=== PATIENT | female | born 1995 | race Caucasian/White ===

== ENCOUNTER 2021-04-30 12:21 | Emergency (ER) | payer MEDICAID ==
[~2021-04-30] VITALS: Ht 165.1 cm; Wt 113.4 kg
[2021-04-30 12:21] VITALS: BP 126/82
[2021-04-30] MEDS ORDERED: HYDROcodone-ACET 10/325MG TAB PO ONE (14:30)
== END 2021-04-30 22:07 | disposition home or self-care (01) ==
LOC: ER 12:21
DX: S33.5XXA Sprain of ligaments of lumbar spine, initial encounter (principal); R10.9 Unspecified abdominal pain; N18.2 Chronic kidney disease, stage 2 (mild); X58.XXXA Exposure to other specified factors, initial encounter; Y93.89 Activity, other specified; Y92.89 Other specified places as the place of occurrence of the external cause; Y99.8 Other external cause status
CPT/HCPCS: 72131; 74176

== ENCOUNTER 2021-12-09 14:08 | Emergency (ER) | payer MEDICAID ==
[~2021-12-09] VITALS: Ht 165.1 cm; Wt 118.1 kg
[2021-12-09 17:54] LABS: Urine Bacteria NONE SEEN /hpf (None Seen); Urine Blood Negative /uL (Negative); Urine Mucus FEW (None Seen); Urine Specific Gravity 1.021 (1.001-1.035); Urine WBC <1 /hpf (0 - 5)
[2021-12-09] MEDS ORDERED: ONDANSETRON HCL 4 MG/2 ML VIAL IV ONE (18:30)
[2021-12-09] MEDS ORDERED: MORPHINE SULFATE 4 MG/ML SYR/VIAL IV ONE (18:30)
[2021-12-09] MEDS ORDERED: LACTATED RINGER'S 1,000 ML IV ONE (18:30)
[2021-12-09 18:35] LABS: Basophils # (auto) 0.1 10 ^3/uL (0-0.2); Basophils % (auto) 0.6 % (0.0-2.0); Eosinophils # (auto) 0.1 10 ^3/uL (0-0.8); Eosinophils % (auto) 0.8 % (0.0-7.0); Hematocrit 44.2 % (36.0-46.0); Hemoglobin 14.9 g/dL (12.2-16.2); Lymphocytes # (auto) 2.8 10 ^3/uL (0.4-5.4); Lymphocytes % (auto) 28.3 % (10.0-50.0); Mean Corpuscular Hemoglobin 30.4 pg (28.0-32.0); Mean Corpuscular Hgb Conc. 33.6 g/dL (32.0-36.0); Mean Corpuscular Volume 90.6 fL (80.0-100.0); Monocytes # (auto) 0.6 10 ^3/uL (0-1.3); Monocytes % (auto) 5.8 % (0.0-12.0); Neutrophils # (auto) 6.5 10 ^3/uL (1.6-8.6); Neutrophils % (auto) 64.5 % (37.0-80.0); Nucleated Red Blood Cells % 0.1 %; Red Blood Cells 4.88 10^6/uL (4.0-5.20); Red Cell Distribution Width 13.5 % (11.8-14.3)
[2021-12-09 18:48] LABS: Albumin 4.1 g/dL (3.4-5.0); BUN/Creatinine Ratio 6.1; Calcium 8.9 mg/dL (8.5-10.1); Potassium 3.9 mmol/L (3.5-5.1)
[2021-12-09 18:51] LABS: Bilirubin, Total 0.5 mg/dL (0.2-1.0); Total Protein 7.6 g/dL (6.4-8.2)
[2021-12-09 18:54] LABS: Partial Thromboplastin Time 26.9 sec (24.6-33.4)
[2021-12-09 19:17] LABS: Lactic Acid w/Reflex 2.3 mmol/L (0.4-2.0)
[2021-12-09] MEDS ORDERED: IOHEXOL 300 MG/ML 100ML BOTTLE IJ ONE (19:57)
[2021-12-10 00:33] VITALS: BP 129/68
[2021-12-10] MEDS ORDERED: ONDANSETRON HCL 4 MG/2 ML VIAL IV ONE (02:30)
[2021-12-10] MEDS ORDERED: ONDANSETRON HCL 4 MG/2 ML VIAL ONE (02:34)
== END 2021-12-10 02:47 | disposition home or self-care (01) ==
LOC: ER 14:08
DX: R10.9 Unspecified abdominal pain (principal); R11.2 Nausea with vomiting, unspecified; Z20.822 Contact with and (suspected) exposure to COVID-19
CPT/HCPCS: 36415; 71045; 74177; 80053; 81001; 83605; 83735; 85025; 85610; 85730; 87426; 96361; 96374; 96375; 96376; 99285; J2270; J2405; J7030; Q9967

== ENCOUNTER 2024-04-15 13:01 | Observation (INO) | payer MEDICAID ==
[~2024-04-15] VITALS: Ht 165.1 cm; Wt 117.9 kg
--- NOTE | 2024-04-15 15:21 | DVH ---
LIMITED OB ULTRASOUND > 14 WKS: HISTORY: s/p FALL CERVICAL LENGTH TECHNIQUE: Multiple real-time grayscale images of the gravid uterus with duplex Doppler color flow an d M-mode spectral analysis. TRANSDUCER: Transabdominal FINDINGS: IUP single live fetus at 22 weeks 5 days based on composite averages of the BPD, head circumference, abdominal circumference and femur length Estimated weight 552 grams heart rate 141 beats per minute JAMEY within normal limits. MVP 5.1 cm Cervix measures 3.7 cm and appears closed. Transverse head right Presentation Posterior placenta without previa or abruption. IMPRESSION: 1. IUP single live fetus at 22 weeks 5 days AUA corresponding to an AKI of 08/14/2024. 2. Closed cervix measuring 3.7 cm. HS:Y
[2024-04-15] MEDS ORDERED: METO-281 PO (15:34)
[2024-04-15] MEDS ORDERED: FOLI-119 PO (15:34)
[2024-04-15] MEDS ORDERED: PREN-96 PO (15:34)
[2024-04-15] MEDS: ACETAMINOPHEN 325 MG TAB PO ONE (15:40)
== END 2024-04-15 16:34 | disposition home or self-care (01) ==
LOC: LDRP 13:01
PROVIDERS: ADMIT Obstetrics & Gynecology; ATTEND Obstetrics & Gynecology
DX: O9A.212 Injury, poisoning and certain other consequences of external causes complicating pregnancy, second trimester (principal); S80.01XA Contusion of right knee, initial encounter; R22.0 Localized swelling, mass and lump, head; M79.642 Pain in left hand; Z3A.22 22 weeks gestation of pregnancy; Z79.899 Other long term (current) drug therapy; W18.39XA Other fall on same level, initial encounter; Y93.89 Activity, other specified; Y92.89 Other specified places as the place of occurrence of the external cause; Y99.8 Other external cause status
CPT/HCPCS: 59025; 76805; G0378

== ENCOUNTER 2024-04-15 16:55 | Emergency (ER) | payer MEDICAID, OTHER ==
[~2024-04-15] VITALS: Ht 165.1 cm; Wt 121.8 kg
[~2024-04-15 16:55] MED LIST: FOLI-119 PO; METO-281 PO; PREN-96 PO
[2024-04-15 17:20] VITALS: BP 142/77; PULSE 87; RESP 18; TEMP 97.8; O2SAT 100
--- NOTE | 2024-04-15 19:51 | ED.PDOC ---
Pb. trauma (HPI) HPI Comments 28-year-old female complaining of left hand pain right knee pain and left side facial pain. Patient was 22 weeks . 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 States she also hit her forehead. No loss of consciousness. Patient went up to L and D and had abdomen checked. Patient was cleared to be seen in the ER. Chief Complaint: Fall Injury Time Seen by MD: 18:09 Primary Care Provider: CLOVIS Reviewed notes: Nurses Notes Allergies: Coded Allergies: No Known Drug Allergy (Verified Allergy, Unknown, 04/30/21) Home Meds Reported Medications Metoclopramide Hcl (Reglan) 10 Mg Tab, 10 MG PO, TAB 04/15/24 Vit W/ Ferrous Fumara ( One Daily) Daily Tab, 1 TAB PO DAILY, #90 TAB 3 Refills 04/15/24 Folic Acid (Folic Acid) 1 Mg Tab, 1 MG PO DAILY for 30 Days, MG 04/15/24 Information Source: Patient Mode of Arrival: Ambulatory Past Medical History PAST MEDICAL HISTORY: Denies Surgical History: Denies all surgeries MOLDER SWEEP History: Denies all MOLDER SWEEP Hx Family History Family History: Reviewed,noncontributory to illness Social History Smoker: Non-Smoker Alcohol: Denies ETOH Use Drugs: Denies Drug Use Lives In: Home Constitutional: denies: chills, diaphoresis, fatigue, fever, malaise, sweats, weakness, others EENTM: denies: blurred vision, double vision, ear bleeding, ear discharge, ear drainage, ear pain, ear ringing, eye pain, eye redness, hearing loss, mouth pain, mouth swelling, nasal discharge, nose bleeding, nose congestion, nose pain, photophobia, tearing, throat pain, throat swelling, voice changes, others Respiratory: denies: cough, hemoptysis, orthopnea, SOB at rest, shortness of breath, SOB with excertion, stridor, wheezing, others Cardiovascular: denies: chest pain, dizzy spells, diaphoresis, Dyspnea on exertion, edema, irregular heart beat, left arm pain, lightheadedness, palpitations, PND, syncope, others Gastrointestinal: denies: abdomen distended, abdominal pain, blood streaked bowels, constipated, diarrhea, dysphagia, difficulty swallowing, hematemesis, melena, nausea, poor appetite, poor fluid intake, rectal bleeding, rectal pain, vomiting, others Genitourinary: denies: abnormal vagina bleeding, burning, dyspareunia, dysuria, flank pain, frequency, hematuria, incontinence, pain, , vagina discharge, urgency, others Neurological: denies: dizziness, fainting, headache, left sided numbness, left sided weakness, numbness, paresthesia, pre-existing deficit, right sided numbness, right sided weakness, seizure, speech problems, tingling, tremors, weakness, others Musculoskeletal: reports: muscle pain, muscle stiffness; denies: back pain, gout, joint pain, joint swelling, neck pain, others Integumetry: denies: bruises, change in color, change in hair/nails, dryness, laceration, lesions, lumps, rash, wounds, others Allergic/Immunocompromised: denies: Difficulty Healing, Frequent Infections, Hives, Itching, others Hematologic/Lymphatic: denies: anemia, blood clots, easy bleeding, easy bruising, swollen glands, others Physical Exam General Appearance: No Apparent Distress, Normal HEENT: Head (Patient is a right eyebrow), Normal ENT Inspection, Pharynx Normal, TMs Normal Neck: Full Range of Motion, Non-Tender, Normal, Normal Inspection Respiratory: Chest Non-Tender, Lungs Clear, No Accessory Muscle Use, No Respiratory Distress, Normal Breath Sounds Cardiovascular: No Edema, No JVD, No Murmur, No Gallop, Normal Peripheral Pulses, Regular Rate/Rhythm Breast Exam: Deferred Gastrointestinal: No Organomegaly, Non Tender, No Pulsatile Mass, Normal Bowel Sounds, Soft Genitalia: Deferred Pelvic: Deferred Rectal: Deferred Extremities: No calf tenderness, Normal capillary refill, No pedal edema, Other (Superficial abrasion to left palm. Abrasion to right knee. Full range of motion in all extremities.) Musculoskeletal : Apperance: Normal Neurologic: Alert, superintendent institution II-XII nml as Tested, No Motor Deficits, Normal Affect, Normal Mood, No Sensory Deficits Cerebellar Function: Normal Reflexes: Normal Skin: Dry, Normal Color, Warm Lymphatic: No Adenopathy Was a procedure done? Was a procedure done?: No Differential Diagnosis Multiple Trauma: Fractures, Abrasions, Contusion X-Ray, Labs, Meds, VS Vital Signs Date Time Temp Pulse Resp B/P (MAP) Pulse Ox O2 Delivery O2 Flow Rate FiO2 04/15/24 17:20 97.8 87 18 142/77 (98) 100 X-Ray, Labs, Meds, VS Comment Imaging: X-rays and CT scans were reviewed and interpreted by this provider, imaging shows no fractures and no pathological disease. Pending radiology review. Laboratory: Labs reviewed and interpreted by this provider. No significant abnormalities noted. Patient has prior medical visits reviewed. Med reconciliation performed Vital signs reviewed Time of 1ST Reevaluation: 19:55 Reevaluation 1ST: Improved Patient Education/Counseling: Diagnosis, Treatment, Need For Follow Up (Follow up with the PCP in the next 3-5 days.) Family Education/Counseling: Diagnosis Departure 1 Departure Time of Disposition: 19:55 Impression: Primary Impression: Head contusion Qualified Codes: S00.11XA - Contusion of right eyelid and periocular area, initial encounter Additional Impressions: Contusion of left hand Qualified Codes: S60.222A - Contusion of left hand, initial encounter Contusion of right knee Qualified Codes: S80.01XA - Contusion of right knee, initial encounter Disposition: HOME / SELF CARE / HOMELESS Condition: Fair Discharged With: Self Critical Care Note Critical Care Time?: No Stability Stability form required: No Heart Score Heart Score: Heart Score Response (Comments) Value History N/A 0 EKG N/A 0 Age N/A 0 Risk Factors N/A 0 Troponin N/A 0 Total 0 WAYNE STALLINGS Apr 15, 2024 19:51
--- NOTE | 2024-04-16 11:54 | DVHDS2 ---
Physician Discharge Progress N Final Diagnosis: s/p fall Operations or Procedures: Operations or Procedures nst,sono Condition on Discharge: Good Disposition: Home Discharge Instructions: Diet: Regular Activity: Light activity Medications: na Follow Up Care: Specialist: to er Discharge Statement: "Patient was advised to return to the ER or call 911 if any headaches, dizzine ss, shortness of breath, chest pain, abdominal pain, bleeding, fevers, or worsening of medical condition. Patient was counseled about treatment plan, medications, possible side effects, patientverbalized understanding. All questions were answered to the best of my ability. This discharge took greater then 30 minutes in planning, reviewing documentation, counseling the patient, and discussing with other team members." MITCH WILCOX DO Apr 16, 2024 11:54
== END 2024-04-15 20:13 | disposition home or self-care (01) ==
LOC: EEVIPCON 17:11 → ER 17:11
DX: O9A.212 Injury, poisoning and certain other consequences of external causes complicating pregnancy, second trimester (principal); S00.11XA Contusion of right eyelid and periocular area, initial encounter; S00.93XA Contusion of unspecified part of head, initial encounter; S60.222A Contusion of left hand, initial encounter; S80.01XA Contusion of right knee, initial encounter; Z3A.22 22 weeks gestation of pregnancy; W18.09XA Striking against other object with subsequent fall, initial encounter; Y93.89 Activity, other specified; Y92.69 Other specified industrial and construction area as the place of occurrence of the external cause; Y99.8 Other external cause status